=== PATIENT | male | born 2000 | race Caucasian/White ===

== ENCOUNTER 2019-06-30 09:29 | Emergency (ER) | payer MEDICAID ==
[~2019-06-30] VITALS: Ht 172.7 cm; Wt 68.2 kg
[2019-06-30 09:34] VITALS: Ht 172.7 cm; Wt 68.2 kg
[2019-06-30 10:22] LABS: CALC OSMOLALITY 279 mosm/kg (275-300); CARBON DIOXIDE 25.7 mmol/L (21.0-32.0); CHLORIDE - SERUM 101 mmol/L (98-107); CREATININE - SERUM 0.9 mg/dL (0.6-1.3); GLUCOSE 101 mg/dL (74-106); POTASSIUM - SERUM 3.8 mmol/L (3.5-5.1); SODIUM 139 mmol/L (136-145); UREA NITROGEN 17 mg/dL (7-18); eGFR NON AFRICAN AMERICAN > 90 mL/min (90-120)
[2019-06-30 10:24] LABS: BASOPHILS 0.1 % (0-2); EOSINOPHILS 0.4 % (0-7); HEMATOCRIT 45.6 % (42.0-54.0); HEMOGLOBIN 15.8 g/dL (13.5-17.5); IMMATURE GRANULOCYTES 0.4 % (0-5); LYMPHOCYTES 5.1 % (15-50); MCH 30.1 pg (26.0-34.0); MCHC 34.6 g/dL (31.0-37.0); MCV 86.9 fL (80.0-100.0); MEAN PLATELET VOLUME 8.9 fL (7.4-10.4); PLATELET COUNT 225 10x3/uL (130-400); RBC 5.25 10x6/uL (4.20-6.10); RDW 12.6 % (11.5-14.5); WBC 15.6 10x3/uL (4.8-10.8)
[2019-06-30 10:28] LABS: ALKALINE PHOSPHATASE 92 U/L (46-116); ALT (SGPT) 34 U/L (10-68); AMYLASE - SERUM 32 U/L (25-115); BILIRUBIN - TOTAL 0.55 mg/dL (0.2-1.3); LIPASE 87 U/L (73-393); PROTEIN - SERUM 7.8 g/dL (6.4-8.2)
[2019-06-30 10:49] LABS: APPEARANCE CLEAR (CLEAR); BILIRUBIN NEGATIVE (NEGATIVE); COLOR YELLOW (YELLOW); GLUCOSE NEGATIVE (NEGATIVE); KETONE NEGATIVE (NEGATIVE); NITRITE NEGATIVE (NEGATIVE); PROTEIN NEGATIVE (NEGATIVE); SPECIFIC GRAVITY 1.015 (1.005-1.020); UROBILINOGEN NORMAL (NORMAL)
[2019-06-30 10:50] LABS: BACTERIA FEW /hpf (NEGATIVE); EPITHELIAL CELLS RARE /hpf (0-5); RED CELLS - URINE OCC /hpf (0-5); WHITE CELLS - URINE RARE /hpf (NEGATIVE)
[2019-06-30] MEDS ORDERED: ZOFRAN ODT4 MG/UDTAB PO (12:13)
[2019-06-30 12:31] VITALS: BP 126/72
== END 2019-06-30 12:32 | disposition home or self-care (01) ==
LOC: D.ER 09:29
PROVIDERS: Family Medicine
DX: K52.9 Noninfective gastroenteritis and colitis, unspecified (principal)